=== PATIENT | female | born 1965 | race Caucasian/White ===

== ENCOUNTER 2016-09-07 12:05 | Emergency (ER) | payer BC ==
[~2016-09-07] VITALS: Ht 162.6 cm; Wt 60.2 kg
[2016-09-07 12:15] VITALS: BP 118/81; PULSE 74; RESP 16; TEMP 97.9; O2SAT 96
[2016-09-07 13:05] VITALS: BP 112/77; PULSE 71; RESP 16; O2SAT 98
--- NOTE | 2016-09-07 13:09 | PD ---
HPI Chief Complaint: Musculoskeletal Complaint Time Seen by Provider: 12:55 Travel History International Travel<30 days: No Contact w/Intl Traveler<30days: No Traveled to known affect area: No History of Present Illness HPI Is a 51 year-old woman who presents to the emergency department complaining of right sided spasms. She is a history of recent diagnosis of ankylosing spondylitis. She just started on methotrexate 2 weeks ago. She also had degenerative disc disease in her neck with some spinal stenosis some radiculopathy symptoms and underwent an ACDF of multiple falls on July 13. She states since that time she's had spasms in her paraspinous muscles in her neck and into her arms. 2 nights ago she had pretty severe spasms on her right side arm and leg that woke her up from sleep and lasted just a few seconds. Since that time she's had worsening spasms. She states she spoke to her office professionals who recommended she come to the emergency department to get blood work done for metabolic causes. She is visiting from [place]. History Past Medical History Narrative Medical Ankylosing spondylitis, on methotrexate Anxiety and depression Degenerative disc disease Social History Tobacco Use: No Allergies-Medications (Allergen,Severity, Reaction): Coded Allergies: No Known Allergies (Unverified , 09/07/16) Reported Meds & Prescriptions Reported Meds & Active Scripts Active Reported Methotrexate 2.5 Mg Tab 20 Mg PO Q7D Tizanidine (Tizanidine HCl) 4 Mg Cap 4 Mg PO Q8HR PRN Folic Acid 5 Mg Cap 1 Mg PO DAILY Review of Systems Except as stated in HPI: all other systems reviewed are Neg Physical Exam Narrative GENERAL: Well-appearing 51 year-old woman, no acute distress. SKIN: Warm and dry. HEAD: Atraumatic. Normocephalic. NECK: Trachea midline. No JVD. CARDIOVASCULAR: Regular rate and rhythm. No murmur appreciated. RESPIRATORY: No accessory muscle use. Clear to auscultation. Breath sounds equal bilaterally. GASTROINTESTINAL: Abdomen soft, non-tender, nondistended. Hepatic and splenic margins not palpable. MUSCULOSKELETAL: No obvious deformities. No edema. NEUROLOGICAL: Awake and alert. No obvious cranial nerve deficits. Strength full and equal upper and lower extremities. Normal speech. PSYCHIATRIC: Appropriate mood and affect; insight and judgment normal. Data Data Last Documented VS Vital Signs Date Time Temp Pulse Resp B/P Pulse Ox O2 Delivery O2 Flow Rate FiO2 09/07/16 13:09 16 09/07/16 12:15 97.9 74 118/81 96 Orders Complete Blood Count With Diff (09/07/16 13:05) Comprehensive Metabolic Panel (09/07/16 13:05) Magnesium (Mg) (09/07/16 13:05) Labs Laboratory Tests Test 09/07/16 14:00 White Blood Count 5.2 TH/MM3 Red Blood Count 4.64 MIL/MM3 Hemoglobin 14.7 GM/DL Hematocrit 44.2 % Mean Corpuscular Volume 95.4 FL Mean Corpuscular Hemoglobin 31.6 PG Mean Corpuscular Hemoglobin 33.2 % Concent Red Cell Distribution Width 12.5 % Platelet Count 308 TH/MM3 Mean Platelet Volume 7.8 FL Neutrophils (%) (Auto) 52.6 % Lymphocytes (%) (Auto) 37.4 % Monocytes (%) (Auto) 6.3 % Eosinophils (%) (Auto) 2.4 % Basophils (%) (Auto) 1.3 % Neutrophils # (Auto) 2.7 TH/MM3 Lymphocytes # (Auto) 2.0 TH/MM3 Monocytes # (Auto) 0.3 TH/MM3 Eosinophils # (Auto) 0.1 TH/MM3 Basophils # (Auto) 0.1 TH/MM3 CBC Comment DIFF FINAL Differential Comment Sodium Level 144 MEQ/L Potassium Level 3.8 MEQ/L Chloride Level 107 MEQ/L Carbon Dioxide Level 29.0 MEQ/L Anion Gap 8 MEQ/L Blood Urea Nitrogen 14 MG/DL Creatinine 0.82 MG/DL Estimat Glomerular Filtration 73 ML/MIN Rate Random Glucose 95 MG/DL Calcium Level 9.7 MG/DL Magnesium Level 2.3 MG/DL Total Bilirubin 0.5 MG/DL Aspartate Amino Transf 14 U/L (AST/SGOT) Alanine Aminotransferase 20 U/L (ALT/SGPT) Alkaline Phosphatase 72 U/L Total Protein 6.7 GM/DL Albumin 4.0 GM/DL [facility] Medical Decision Making Medical Screen Exam Complete: Yes Emergency Medical Condition: Yes Interpretation(s) LABS: CBC is unremarkable. CMP is unremarkable. Magnesium is normal. Differential Diagnosis Spasms, dehydration, electrolyte abnormality, other Narrative Course Medical decision making INITIAL: Is a 51 year-old woman presents emergent from clinic a muscle spasms. She looks well. Spasms are on the right side arm and leg. No other clear radiculopathy symptoms or paresthesias. She looks otherwise well. We'll check labs, we'll fax results are office professionals. Outpatient follow-up. Diagnosis Primary Impression: Muscle spasms of neck Additional Instructions: Continue tizanidine as prescribed. Follow-up with your primary doctor soon as you returned home. Return to the emergency department for any new or worsening symptoms. Med/Other Pt SpecificInfo: No Change to Meds Disposition: 01 DISCHARGE HOME Condition: Stable Eduar Parisi MD Sep 07, 2016 13:09
[2016-09-07] MEDS ORDERED: FOLI5CAP PO (13:21)
[2016-09-07] MEDS ORDERED: TIZA4CAP3 PO (13:21)
[2016-09-07] MEDS ORDERED: METH2.5T PO (13:21)
[2016-09-07 14:05] LABS: AUTOMATED NEUTROPHIL # 2.7 TH/MM3 (1.8-7.7); BASOPHIL # 0.1 TH/MM3 (0-0.2); BASOPHIL % 1.3 % (0.0-2.0); EOSINOPHIL # 0.1 TH/MM3 (0-0.4); EOSINOPHIL % 2.4 % (0.0-4.0); HEMATOCRIT 44.2 % (35.0-46.0); HEMO FLAGS DIFF FINAL; LYMPH % 37.4 % (9.0-44.0); MEAN CELL VOLUME 95.4 FL (80.0-100.0); MEAN CORPUSCULAR HEMOGLOBIN 31.6 PG (27.0-34.0); MEAN CORPUSCULAR HGB CONC 33.2 % (32.0-36.0); MONO % 6.3 % (0.0-8.0); NEUT % 52.6 % (16.0-70.0); PLATELET COUNT 308 TH/MM3 (150-450); RED BLOOD COUNT 4.64 MIL/MM3 (4.00-5.30); RED CELL DISTRIBUTION WIDTH 12.5 % (11.6-17.2); WHITE BLOOD COUNT 5.2 TH/MM3 (4.0-11.0)
[2016-09-07 14:13] LABS: CHLORIDE 107 MEQ/L (98-107); POTASSIUM 3.8 MEQ/L (3.5-5.1); SODIUM (NA) 144 MEQ/L (136-145)
[2016-09-07 14:17] LABS: ANION GAP 8 MEQ/L (5-15); BLOOD UREA NITROGEN 14 MG/DL (7-18); MAGNESIUM 2.3 MG/DL (1.5-2.5)
[2016-09-07 14:19] LABS: ALT (GPT) 20 U/L (10-53)
[2016-09-07 14:20] LABS: AST (GOT) 14 U/L (15-37); GLOMERULAR FILTRATION RATE 73 ML/MIN (>89)
[2016-09-07 14:21] LABS: TOTAL BILIRUBIN ADULT 0.5 MG/DL (0.2-1.0)
[2016-09-07 14:22] LABS: ALKALINE PHOSPHATASE 72 U/L (45-117)
[2016-09-07 14:52] VITALS: BP 116/83
== END 2016-09-07 14:56 | disposition home or self-care (01) ==
LOC: PHED 12:05
DX: M62.838 Other muscle spasm (principal); M45.9 Ankylosing spondylitis of unspecified sites in spine; M50.30 Other cervical disc degeneration, unspecified cervical region; Z79.899 Other long term (current) drug therapy
CPT/HCPCS: 80053; 83735; 85025; 99283